=== PATIENT | female | born 1985 | race Caucasian/White ===

== ENCOUNTER 2019-01-29 11:48 | Emergency (ER) | payer OTHER ==
[2019-01-29 12:02] VITALS: BP 119/67; PULSE 78; RESP 16; TEMP 98.3
[2019-01-29] MEDS ORDERED: DEXAMETHASONE 4 MG TAB PO STA (12:17)
--- NOTE | 2019-01-29 12:22 | ED ---
ENT HPI - General Chief complaint: ENT Stated complaint: Sore throat Time Seen by Provider: 01/29/19 12:05 Source: patient, RN notes reviewed Mode of arrival: ambulatory Limitations: no limitations - History of Present Illness Initial comments: 33-year-old female presents emergency from chief complaint of sore throat. Patient states started a few days ago noticed the swelling just painful. Patient reports no fevers or chills. Patient has had tonsillar abscess. Past. Patient states this feels slightly different. Patient's had no cough congestion or nasal congestion. Patient does admit that she has multiple drug ALLERGIES. - Related Data Previous Rx's Medication Instructions Recorded Cephalexin [Keflex] 500 mg PO Q6HR #40 cap 01/29/19 Review of Systems ROS Statement: Those systems with pertinent positive or pertinent negative responses have been documented in the HPI. ROS Other: All systems not noted in ROS Statement are negative. Past Medical History Additional Past Medical History / Comment(s): celiacs disease hypglycemia hpv wpw History of Any Multi-Drug Resistant Organisms: None Reported Past Surgical History: No Surgical Hx Reported Past Psychological History: Anxiety Smoking Status: Never smoker Past Alcohol Use History: None Reported Past Drug Use History: None Reported General Exam Limitations: no limitations General appearance: alert, in no apparent distress Head exam: Present: atraumatic, normocephalic, normal inspection Eye exam: Present: normal appearance, PERRL, EOMI. Absent: scleral icterus, conjunctival injection, periorbital swelling ENT exam: Present: mucous membranes moist, TM's normal bilaterally, normal external ear exam. Absent: normal oropharynx (Erythematous posterior pharynx, edematous tonsils noted slightly greater in the left first right though no definite abscess.) Neck exam: Present: normal inspection, full ROM. Absent: tenderness, meningismus, lymphadenopathy Respiratory exam: Present: normal lung sounds bilaterally. Absent: respiratory distress, wheezes, rales, rhonchi, stridor Cardiovascular Exam: Present: regular rate, normal rhythm, normal heart sounds. Absent: systolic murmur, diastolic murmur, rubs, gallop, clicks Course Vital Signs 01/29/19 11:58 Temperature 98.3 F Pulse Rate 78 Respiratory 16 Rate Blood Pressure 119/67 O2 Sat by Pulse 99 Oximetry Medical Decision Making - Medical Decision Making 33-year-old female presented for sore throat. Patient will be treated for acute tonsillitis will be given Decadron now. Patient will be given Keflex as she has multiple ALLERGIES to medication and patientstates only meds she can take is Keflex and doxycycline. Disposition Clinical Impression: Acute tonsillitis Disposition: HOME SELF-CARE Condition: Stable Instructions (If sedation given, give patient instructions): Tonsillitis (ED) Additional Instructions: Please return to the Emergency Department if symptoms worsen or any other concerns. Prescriptions: Cephalexin [Keflex] 500 mg PO Q6HR #40 cap Is patient prescribed a controlled substance at d/c from ED?: No Referrals: Nonstaff,Physician [Primary Care Provider] - 1-2 days Time of Disposition: 12:20
== END 2019-01-29 12:40 | disposition home or self-care (01) ==
LOC: EC 11:48
DX: J03.90 Acute tonsillitis, unspecified (principal)
CPT/HCPCS: 99282; J8540